=== PATIENT | female | born 1940 | race American Indian/Alaskan Native ===

== ENCOUNTER 2017-03-27 11:03 | Inpatient (IN) | payer MEDICARE, OTHER ==
[~2017-03-27] VITALS: Ht 157.5 cm; Wt 95.1 kg
[2017-03-27] MEDS ORDERED: LACTATED RINGERS 1,000 ML IV SCH ×2 (12:00→21:30)
[2017-03-27] MEDS ORDERED: ASPI-496 PO (12:19)
[2017-03-27] MEDS ORDERED: GLIM2TAB2 PO (12:19)
[2017-03-27] MEDS ORDERED: OXYC5CAP4 PO (12:19)
[2017-03-27] MEDS ORDERED: LOSA100T6 PO (12:19)
[2017-03-27] MEDS ORDERED: METF10002 PO ×2 (12:19)
[2017-03-27] MEDS ORDERED: ATOR10TA9 PO (12:19)
[2017-03-27] MEDS ORDERED: TELM80TA PO (12:19)
[2017-03-27] MEDS ORDERED: SIMV20TA3 PO (12:19)
[2017-03-27] MEDS ORDERED: INSU200I SC (12:19)
[2017-03-27] MEDS ORDERED: FURO20TA3 PO (12:19)
[2017-03-27] MEDS ORDERED: CHOL4POW3 PO (12:19)
[2017-03-27] MEDS ORDERED: SULF1TAB24 PO (12:19)
[2017-03-27] MEDS ORDERED: EXEN10PE SC (12:19)
[2017-03-27 12:30] VITALS: BP 147/70
[2017-03-27 13:28] LABS: ASPARTATE AMINO TRANSFERASE 36 U/L (15-37); BLOOD UREA NITROGEN 18 mg/dL (7-18)
[2017-03-27] MEDS ORDERED: BACITRACIN 50,000 UNIT ONE (17:19)
[2017-03-27] MEDS ORDERED: FENTANYL PF 250 MCG/5ML ONE (17:36)
[2017-03-27] MEDS ORDERED: MIDAZOLAM 1 MG/ML, 2ML ONE (17:36)
[2017-03-27] MEDS ORDERED: PROPOFOL 10 MG/ML, 20ML ONE (17:38)
[2017-03-27] MEDS ORDERED: ONDANSETRON 2MG/ML, 2ML ONE (17:38)
[2017-03-27] MEDS ORDERED: MIDAZOLAM 1 MG/ML, 2ML IV PRN (18:00)
[2017-03-27] MEDS ORDERED: HYDROmorphone 1 MG/ML, 1ML IV PRN (18:00)
[2017-03-27] MEDS ORDERED: MEPERIDINE/PF 25MG/0.5ML IVPush PRN (18:00)
[2017-03-27] MEDS ORDERED: ONDANSETRON 2MG/ML, 2ML IVPush PRN (18:00)
[2017-03-27] MEDS ORDERED: FENTANYL PF 100 MCG/2ML IV PRN (18:00)
[2017-03-27] MEDS ORDERED: OXYcodone 5 MG/5 ML ORAL.SOL UDC PO PRN (18:00)
[2017-03-27] MEDS ORDERED: OXYcodone 5 MG/5 ML ORAL.SOL UDC ONE (19:16)
[2017-03-27] MEDS ORDERED: MEPERIDINE/PF 25MG/0.5ML ONE (19:16)
[2017-03-27 20:05] VITALS: BP 141/55
[2017-03-27] MEDS ORDERED: ATORVASTATIN 10 MG TABLET PO SCH (21:10)
[2017-03-27] MEDS ORDERED: LOSARTAN 50MG TABLET PO SCH (21:16)
[2017-03-27] MEDS ORDERED: SIMVASTATIN MC SCH (21:30)
[2017-03-27] MEDS ORDERED: morphine SULFATE 10 MG/ML, 1ML IV PRN (21:30)
[2017-03-27] MEDS ORDERED: ONDANSETRON 2MG/ML, 2ML IV PRN (21:30)
[2017-03-27] MEDS ORDERED: ATORVASTATIN MC SCH (21:30)
[2017-03-27] MEDS ORDERED: TELMISARTAN MC SCH (21:30)
[2017-03-27] MEDS ORDERED: INSULIN LISPRO MC SCH (21:30)
[2017-03-27] MEDS ORDERED: LOSARTAN MC SCH (21:30)
[2017-03-27] MEDS ORDERED: METF500T4 PO (22:21)
[2017-03-27] MEDS ORDERED: PHARMACOKINETIC CONSULTATION MC ONE (22:30)
[2017-03-27] MEDS ORDERED: PHARMACOKINETIC MONITORING MC PRN (22:30)
[2017-03-27] MEDS ORDERED: FUROSEMIDE 20 MG TABLET PO PRN (22:30)
[2017-03-27] MEDS ORDERED: VANCOMYCIN PER PHARMACY MC PRN (22:30)
[2017-03-27] MEDS ORDERED: VANCOMYCIN 1,400 MG in SODIUM CHLORIDE 0.9% 250 ML IV SCH (23:00)
[2017-03-28] VITALS (7 sets, daily range): BP systolic 117–153; BP diastolic 42–64
[2017-03-28] MEDS: FUROSEMIDE MC SCH ×2 (00:58→00:59)
[2017-03-28] MEDS: METFORMIN MC SCH ×2 (00:58→00:59)
[2017-03-28 05:30] LABS: BLOOD UREA NITROGEN 13 mg/dL (7-18)
[2017-03-28] MEDS: ASPIRIN 81 MG TABLET EC PO SCH (06:26)
[2017-03-28] MEDS: HEPARIN 5,000 UNITS/ML, 1ML SQ SCH ×3 (06:26→23:41)
[2017-03-28] MEDS: INSULIN ASPART 100 UNITS/ML, PEN SQ-INSULIN SCH ×4 (07:00→21:54)
[2017-03-28] MEDS ORDERED: metFORMIN XR 500 MG TAB.ER.24H PO SCH (08:00)
[2017-03-28] MEDS ORDERED: GLIMEPIRIDE 1 MG TABLET PO SCH (08:00)
[2017-03-28] MEDS ORDERED: SULFAMETH./TRIMETHOPRIM DS 800MG/160MG TABLET PO SCH (09:00)
[2017-03-28] MEDS: LOSARTAN 50MG TABLET PO SCH (10:42)
[2017-03-28] MEDS: OXYcodone/APAP 5/325MG TABLET PO PRN ×3 (10:42→20:23)
[2017-03-28] MEDS: metFORMIN 500 MG TABLET PO SCH ×2 (10:42→20:22)
[2017-03-28] MEDS: AMPICILLIN/SULBACTAM 3 GM in SODIUM CHLORIDE 0.9% 100 ML IV SCH ×2 (15:45→21:53)
[2017-03-28] MEDS: SIMVASTATIN 20 MG TABLET PO SCH (20:22)
[2017-03-28] MEDS: LACTATED RINGERS 1,000 ML IV SCH (21:30)
[2017-03-28] MEDS: VANCOMYCIN 1,400 MG in SODIUM CHLORIDE 0.9% 250 ML IV SCH (23:40)
[2017-03-29 01:14] VITALS: BP 148/59
[2017-03-29] MEDS: AMPICILLIN/SULBACTAM 3 GM in SODIUM CHLORIDE 0.9% 100 ML IV SCH ×4 (03:50→22:53)
[2017-03-29] MEDS: ASPIRIN 81 MG TABLET EC PO SCH (06:00)
[2017-03-29 06:20] LABS: ASPARTATE AMINO TRANSFERASE 34 U/L (15-37); BLOOD UREA NITROGEN 17 mg/dL (7-18)
[2017-03-29] MEDS: HEPARIN 5,000 UNITS/ML, 1ML SQ SCH ×3 (06:26→22:53)
[2017-03-29] MEDS: INSULIN ASPART 100 UNITS/ML, PEN SQ-INSULIN SCH ×3 (06:32→16:47)
[2017-03-29 08:25] VITALS: BP 149/55
[2017-03-29] MEDS ORDERED: SODIUM POLYSTYRENE SULFONATE ORAL SUSP PO ONE (08:30)
[2017-03-29] MEDS: metFORMIN 500 MG TABLET PO SCH ×2 (08:56→22:52)
[2017-03-29] MEDS: LOSARTAN 50MG TABLET PO SCH (08:57)
[2017-03-29] MEDS: OXYcodone/APAP 5/325MG TABLET PO PRN ×2 (09:00→12:38)
[2017-03-29] MEDS: LACTATED RINGERS 1,000 ML IV SCH (10:50)
[2017-03-29] MEDS: CHOLESTYRAMINE 4GM PACKET PO SCH (14:00)
[2017-03-29 14:13] VITALS: BP 139/53
[2017-03-29] MEDS ORDERED: SODIUM CHLORIDE 0.9% 1,000 ML IV SCH (14:36)
[2017-03-29 19:15] VITALS: BP 130/50
[2017-03-29] MEDS: SIMVASTATIN 20 MG TABLET PO SCH (22:53)
[2017-03-30] VITALS (14 sets, daily range): BP systolic 123–162; BP diastolic 43–72
[2017-03-30] MEDS: VANCOMYCIN 1,400 MG in SODIUM CHLORIDE 0.9% 250 ML IV SCH (00:25)
[2017-03-30] MEDS: INSULIN ASPART 100 UNITS/ML, PEN SQ-INSULIN SCH ×5 (00:27→22:01)
[2017-03-30] MEDS: OXYcodone/APAP 5/325MG TABLET PO PRN ×2 (00:28→21:02)
[2017-03-30] MEDS: AMPICILLIN/SULBACTAM 3 GM in SODIUM CHLORIDE 0.9% 100 ML IV SCH ×2 (05:04→13:00)
[2017-03-30 05:22] LABS: BLOOD UREA NITROGEN 14 mg/dL (7-18)
[2017-03-30] MEDS: HEPARIN 5,000 UNITS/ML, 1ML SQ SCH ×3 (06:00→21:01)
[2017-03-30] MEDS: ASPIRIN 81 MG TABLET EC PO SCH (06:29)
[2017-03-30] MEDS: FUROSEMIDE 20 MG/2 ML IVPush PRN ×2 (08:20→10:19)
[2017-03-30] MEDS: metFORMIN 500 MG TABLET PO SCH ×2 (08:21→21:01)
[2017-03-30] MEDS: LOSARTAN 50MG TABLET PO SCH (08:22)
[2017-03-30] MEDS: DAPTOMYCIN 500 MG in SODIUM CHLORIDE 0.9% 100 ML IVPB SCH (14:35)
[2017-03-31 02:42] VITALS: BP 146/62
[2017-03-31 05:34] LABS: BLOOD UREA NITROGEN 15 mg/dL (7-18)
[2017-03-31 06:55] VITALS: BP 152/59
[2017-03-31] MEDS: INSULIN ASPART 100 UNITS/ML, PEN SQ-INSULIN SCH ×4 (07:00→21:31)
[2017-03-31] MEDS: ASPIRIN 81 MG TABLET EC PO SCH (07:09)
[2017-03-31] MEDS: HEPARIN 5,000 UNITS/ML, 1ML SQ SCH ×3 (07:13→21:32)
[2017-03-31] MEDS: OXYcodone/APAP 5/325MG TABLET PO PRN ×2 (08:44→20:28)
[2017-03-31] MEDS: CHOLESTYRAMINE 4GM PACKET PO SCH (08:45)
[2017-03-31] MEDS: metFORMIN 500 MG TABLET PO SCH ×2 (08:45→21:30)
[2017-03-31] MEDS: LOSARTAN 50MG TABLET PO SCH (08:45)
[2017-03-31] MEDS: DAPTOMYCIN 500 MG in SODIUM CHLORIDE 0.9% 100 ML IVPB SCH (14:18)
[2017-03-31 14:40] VITALS: BP 159/70
[2017-03-31 20:45] VITALS: BP 143/58
[2017-04-01 00:02] VITALS: BP 140/58
[2017-04-01] MEDS: HEPARIN 5,000 UNITS/ML, 1ML SQ SCH ×3 (06:10→23:26)
[2017-04-01] MEDS: ASPIRIN 81 MG TABLET EC PO SCH (06:37)
[2017-04-01] MEDS: INSULIN ASPART 100 UNITS/ML, PEN SQ-INSULIN SCH ×4 (08:14→23:26)
[2017-04-01] MEDS: metFORMIN 500 MG TABLET PO SCH ×2 (08:15→23:16)
[2017-04-01] MEDS: LOSARTAN 50MG TABLET PO SCH (08:15)
[2017-04-01 08:16] VITALS: BP 165/54
[2017-04-01] MEDS: OXYcodone/APAP 5/325MG TABLET PO PRN ×3 (10:17→23:26)
[2017-04-01] MEDS: DAPTOMYCIN 500 MG in SODIUM CHLORIDE 0.9% 100 ML IVPB SCH (15:26)
[2017-04-01 15:30] VITALS: BP 158/62
[2017-04-01 19:36] VITALS: BP 187/72
[2017-04-02 03:49] VITALS: BP 140/58
[2017-04-02 05:14] LABS: ASPARTATE AMINO TRANSFERASE 22 U/L (15-37); BLOOD UREA NITROGEN 10 mg/dL (7-18)
[2017-04-02] MEDS: ASPIRIN 81 MG TABLET EC PO SCH (07:00)
[2017-04-02] MEDS: INSULIN ASPART 100 UNITS/ML, PEN SQ-INSULIN SCH ×3 (07:30→22:30)
[2017-04-02] MEDS: metFORMIN 500 MG TABLET PO SCH ×2 (08:00→22:30)
[2017-04-02] MEDS: LOSARTAN 50MG TABLET PO SCH (08:00)
[2017-04-02] MEDS: OXYcodone/APAP 5/325MG TABLET PO PRN ×3 (08:27→22:30)
[2017-04-02] MEDS: DAPTOMYCIN 500 MG in SODIUM CHLORIDE 0.9% 100 ML IVPB SCH (15:40)
[2017-04-03] MEDS: HEPARIN 5,000 UNITS/ML, 1ML SQ SCH ×7 (00:30→23:35)
[2017-04-03] MEDS: ASPIRIN 81 MG TABLET EC PO SCH (07:00)
[2017-04-03] MEDS: INSULIN ASPART 100 UNITS/ML, PEN SQ-INSULIN SCH ×6 (07:00→22:39)
[2017-04-03] MEDS: metFORMIN 500 MG TABLET PO SCH ×3 (08:00→22:41)
[2017-04-03] MEDS: LOSARTAN 50MG TABLET PO SCH ×2 (08:30→09:00)
[2017-04-03] MEDS: CHOLESTYRAMINE 4GM PACKET PO SCH (09:00)
[2017-04-03] MEDS: OXYcodone/APAP 5/325MG TABLET PO PRN ×2 (12:00→23:00)
[2017-04-03 13:05] VITALS: BP 142/52
[2017-04-03] MEDS: DAPTOMYCIN 500 MG in SODIUM CHLORIDE 0.9% 100 ML IVPB SCH ×2 (16:36→22:00)
[2017-04-03 19:16] VITALS: BP 139/73
[2017-04-04 02:32] VITALS: BP 132/63
[2017-04-04] MEDS: ASPIRIN 81 MG TABLET EC PO SCH (06:51)
[2017-04-04] MEDS: INSULIN ASPART 100 UNITS/ML, PEN SQ-INSULIN SCH ×4 (07:00→22:05)
[2017-04-04 07:14] VITALS: BP 154/63
[2017-04-04] MEDS: LOSARTAN 50MG TABLET PO SCH (08:31)
[2017-04-04] MEDS: metFORMIN 500 MG TABLET PO SCH ×2 (08:32→21:49)
[2017-04-04] MEDS: OXYcodone/APAP 5/325MG TABLET PO PRN ×2 (08:32→21:49)
[2017-04-04] MEDS: CHOLESTYRAMINE 4GM PACKET PO SCH (08:32)
[2017-04-04] MEDS: HEPARIN 5,000 UNITS/ML, 1ML SQ SCH ×2 (08:32→16:57)
[2017-04-04 14:06] VITALS: BP 149/58
[2017-04-04 19:12] VITALS: BP 155/60
[2017-04-04] MEDS: DAPTOMYCIN 500 MG in SODIUM CHLORIDE 0.9% 100 ML IVPB SCH (22:55)
[2017-04-05] MEDS: HEPARIN 5,000 UNITS/ML, 1ML SQ SCH ×2 (00:19→07:54)
[2017-04-05 01:26] VITALS: BP 147/60
[2017-04-05] MEDS: ASPIRIN 81 MG TABLET EC PO SCH (05:19)
[2017-04-05 07:00] VITALS: BP 158/64
[2017-04-05] MEDS: LOSARTAN 50MG TABLET PO SCH (07:53)
[2017-04-05] MEDS: INSULIN ASPART 100 UNITS/ML, PEN SQ-INSULIN SCH ×2 (07:54→11:29)
[2017-04-05] MEDS: metFORMIN 500 MG TABLET PO SCH (07:54)
[2017-04-05] MEDS: OXYcodone/APAP 5/325MG TABLET PO PRN ×2 (09:27→14:09)
[2017-04-05 11:52] LABS: BLOOD UREA NITROGEN 15 mg/dL (7-18)
[2017-04-05] MEDS ORDERED: MAGNESIUM SULFATE PMX 4GM/100M 100 ML IV ONE (12:30)
[2017-04-05] MEDS ORDERED: MAGNESIUM SULFATE PMX 2GM/50ML 50 ML IV ONE (13:00)
[2017-04-05 13:45] VITALS: BP 143/60
== END 2017-04-05 14:49 | DRG 907 ==
LOC: OUT 11:03 → 4NOR 20:08 → OUT 20:15 → 4NOR 20:18
PROVIDERS: ADMIT Orthopaedic Surgery; ATTEND Orthopaedic Surgery
PROC: 0SPC04Z Removal of Internal Fixation Device from Right Knee Joint, Open Approach (ICD-10-PCS; principal; 2017-03-29)
PROC: 0SBC0ZZ Excision of Right Knee Joint, Open Approach (ICD-10-PCS; 2017-03-29)
PROC: 30233N1 Transfusion of Nonautologous Red Blood Cells into Peripheral Vein, Percutaneous Approach (ICD-10-PCS; 2017-03-30)
PROC: 02HV33Z Insertion of Infusion Device into Superior Vena Cava, Percutaneous Approach (ICD-10-PCS; 2017-04-02)
PROC: B5181ZA Fluoroscopy of Superior Vena Cava using Low Osmolar Contrast, Guidance (ICD-10-PCS; 2017-04-02)
DX: T81.30XA Disruption of wound, unspecified, initial encounter (principal); E43 Unspecified severe protein-calorie malnutrition; T84.624A Infection and inflammatory reaction due to internal fixation device of right fibula, initial encounter; E87.1 Hypo-osmolality and hyponatremia; T84.622A Infection and inflammatory reaction due to internal fixation device of right tibia, initial encounter; E11.51 Type 2 diabetes mellitus with diabetic peripheral angiopathy without gangrene; B95.62 Methicillin resistant Staphylococcus aureus infection as the cause of diseases classified elsewhere; M19.90 Unspecified osteoarthritis, unspecified site; I11.9 Hypertensive heart disease without heart failure; H40.9 Unspecified glaucoma; E87.5 Hyperkalemia; D63.8 Anemia in other chronic diseases classified elsewhere; E66.01 Morbid (severe) obesity due to excess calories; R26.81 Unsteadiness on feet; E78.5 Hyperlipidemia, unspecified; Z68.38 Body mass index [BMI] 38.0-38.9, adult; Z78.9 Other specified health status; Z79.4 Long term (current) use of insulin; Z80.0 Family history of malignant neoplasm of digestive organs; Z82.49 Family history of ischemic heart disease and other diseases of the circulatory system; Z90.710 Acquired absence of both cervix and uterus; Z90.89 Acquired absence of other organs; Z90.49 Acquired absence of other specified parts of digestive tract; Z79.82 Long term (current) use of aspirin; Z79.84 Long term (current) use of oral hypoglycemic drugs; Z79.899 Other long term (current) drug therapy; Z71.3 Dietary counseling and surveillance
CPT/HCPCS: 36415; 36569; 71010; 76937; 77001; 80048; 80053; 80202; 82040; 82330; 82550; 82565; 82962; 83735; 84132; 84520; 85014; 85018; 85025; 85651; 86140; 86850; 86900; 86923; 87015; 87040; 87070; 87075; 87077; 87102; 87116; 87147; 87176; 87186; 87205; 87206; 93005; J0295; J0878; J1644; J1815; J2175; J2250; J2405; J2704; J3010; J3370; C1751; J1940; J3475; J7030; J7050; J7120; P9016